=== PATIENT | female | born 1985 | race Caucasian/White ===

== ENCOUNTER 2016-11-28 03:27 | Emergency (ER) ==
--- NOTE | 2016-11-28 03:41 | ED.PDOC ---
General ED Provider: Dr. DIANDRA CRUM Chief Complaint: Non-specific Complaint Stated Complaint: Patient is a 31 year old who comes to the ER with 4 months history of sinusitis Has an ENT APt in january Has been on 3 rounds of antibiotics. Time Seen by Physician: 03:34 Information Source: Patient Nursing and Triage Documentation Reviewed and Agree: Yes Review of Systems - Review Of Systems Constitutional: Reports: No symptoms Ears, Nose, Mouth, Throat: Denies: Ear pain, Ear discharge Neurological: Reports: Headache (sinus headahe ) All Other Systems: Reviewed and Negative Past Medical History - Past Medical History Endocrine: Reports: None Cardiovascular: Reports: None Respiratory: Reports: None Hematological: Reports: None Gastrointestinal: Reports: None Genitourinary: Reports: None Neuro/Psych: Reports: None Musculoskeletal: Reports: None Cancer: Reports: None - Surgical History General Surgical History: Reports: None - Family History Family History: Reports: None Physical Exam - Physical Exam Appearance: Ill-appearing Ill-appearing: Mild Pain Distress: Moderate Eyes: JESSI, EOMI, Conjunctiva clear ENT: Dry mucosa Neck: Supple Respiratory: Airway patent, Breath sounds clear, Breath sounds equal, Respirations nonlabored Cardiovascular: RRR, Pulses normal, No rub, No murmur GI/: Soft, Nontender, No masses, Bowel sounds normal, No Organomegaly Skin: Warm Psychiatric: Anxious Critical Care Note - Critical Care Note Total Time (mins): 0 Departure - Departure Time of Disposition: 03:59 Disposition: HOME SELF-CARE Discharge Problem: Sinusitis Instructions: Sinusitis (ED) Condition: Fair Pt referred to PMD for follow-up: Yes Additional Instructions: Continued PO antibiotics as prescribed. Follow up with PCP in 3 days Prescriptions: Methylprednisolone [Medrol Dosepak] 4 mg PO DIRECTED #1 pkg Tramadol HCl [Ultram] 50 mg PO Q6H PRN #10 tablet PRN Reason: Severe Pain Allergies/Adverse Reactions: Allergies azithromycin [From Zithromax] Adverse Reaction (Verified 11/28/16 03:40) Hives meperidine [From Demerol] Adverse Reaction (Verified 11/28/16 03:39) Vomiting Home Medications: Ambulatory Orders Acetaminophn/Pyril Mal/Caffein [Menstrual Relief Caplet] 1 tab PO DAILY PRN 07/07 Doxycycline Hyclate 100 mg PO BID 11/28/16 Fluticasone Propionate 16 gm NS PRN PRN 11/28/16 L.acidoph,Paracasei, B.lactis [Probiotic] 1 each PO DAILY 11/28/16 Methylprednisolone [Medrol Dosepak] 4 mg PO DIRECTED #1 pkg 11/28/16 Prednisone 10 mg PO DIRECTED 11/28/16 Pseudoephedrine HCl [Sudafed 24-Hour] 240 mg PO PRN PRN 11/28/16 Tramadol HCl [Ultram] 50 mg PO Q6H PRN #10 tablet 11/28/16 Disposition Discussed With: Patient, Family
[2016-11-28 03:45] VITALS: BP 139/92; TEMP 98.3; BMI 28.1
[2016-11-28] MEDS ORDERED: SOLU-MEDROL 125 MG IM STA (03:48)
== END 2016-11-28 04:25 | disposition home or self-care (01) ==
LOC: ED 03:27
DX: J32.9 Chronic sinusitis, unspecified (principal)
CPT/HCPCS: 96372; 99282

== ENCOUNTER 2017-12-17 11:34 | Outpatient (CLI) | END 2017-12-17 11:35 | disposition home or self-care (01) | LOC: NONPT 11:34 → LAB 11:35 | PROVIDERS: ATTEND Obstetrics & Gynecology | DX: E05.90 Thyrotoxicosis, unspecified without thyrotoxic crisis or storm (principal) | CPT/HCPCS: 36415; 84439; 84443; 84481 ==